=== PATIENT | female | born 1995 | race African-American/Black ===

== ENCOUNTER 2022-01-25 09:55 | Outpatient (REF) | payer BC, SELFPAY ==
[2022-01-26 08:59] LABS: CT PCR NOT DETECTED (Not Detect.); NG PCR NOT DETECTED (Not Detect.)
[2022-01-26 09:22] LABS: BV Int Neg Control Negative (Negative); BV Int Pos Control Positive (Positive)
== END 2022-01-25 09:56 | disposition home or self-care (01) ==
LOC: HO.LAB 09:55
PROVIDERS: Visit Provider Advanced Practice Midwife
DX: Z01.411 Encounter for gynecological examination (general) (routine) with abnormal findings (principal); N93.9 Abnormal uterine and vaginal bleeding, unspecified; E66.01 Morbid (severe) obesity due to excess calories; Z20.2 Contact with and (suspected) exposure to infections with a predominantly sexual mode of transmission
CPT/HCPCS: 87480; 87491; 87510; 87591; 87660; 88142

== ENCOUNTER 2022-02-16 11:51 | Outpatient (REF) | payer BC, SELFPAY ==
--- NOTE | ~2022-02-16 | US_ITS ---
EXAMINATION: US PELVIS CLINICAL INFORMATION: Abnormal uterine and vaginal bleeding COMPARISON: None TECHNIQUE: Ultrasound of the pelvis is performed using both transabdominal and transvaginal transducers along with Doppler. Transvaginal imaging is performed due to inadequate visualization transabdominally. FINDINGS: The uterus is anteverted and measures 7.9 x 3.8 x 5.3 cm in dimension. No focal uterine lesion is seen. Endometrial thickness is normal measuring 1.1 cm. The ovaries are normal in size. Right ovary measures 2.9 x 2.6 x 2.8 cm. The left ovary measures 4.3 x 2 x 2.4 cm. There are multiple small bilateral peripheral cysts or follicles seen in both ovaries. There is no fluid in the pelvis. US/US pelvic and transvaginal IMPRESSION: Slight polycystic appearance of the ovaries. The ovaries are normal in size. Otherwise unremarkable exam.
[2022-02-16 13:10] LABS: Hematocrit 36.8 % (37.0-47.0); Hemoglobin 11.4 g/dl (12.0-16.0); Mean Corpuscular Hemoglobin 24.8 pg (27.0-33.0); Mean Corpuscular Volume 80.2 fL (80.0-98.0); Mean Platelet Volume 11.1 fL (9.4-12.3); Platelet Count 422 X10*3/uL (160-400); Red Blood Count 4.59 X10*6/uL (4.20-5.50); Red Cell Distribution Width 13.8 % (11.0-16.0); White Blood Count 12.7 X10*3/uL (4.8-10.8)
[2022-02-16 13:30] LABS: Estimated Average Glucose 82 mg/dL; Hemoglobin A1c % 4.5 %
[2022-02-16 13:50] LABS: Alanine Aminotransferase 43 U/L (0-31); Albumin Level 3.9 g/dL (3.5-5.0); Alkaline Phosphatase 71 U/L (39-117); Anion Gap 11 (12-20); Aspartate Amino Transferase 23 U/L (5-31); Bilirubin Total 0.5 mg/dL (0.0-1.0); Blood Urea Nitrogen 9 mg/dL (9-16); Calcium 9.1 mg/dL (8.4-10.2); Carbon Dioxide 25 mmol/L (22-29); Chloride 105 mmol/L (96-108); Estimated Glomerular Filt Rate > 60; Glucose Fasting 82 mg/dL (60-99); Potassium 3.9 mmol/L (3.3-5.1); Sodium 137 mmol/L (135-145); Total Protein 7.3 g/dL (6.5-8.0)
[2022-02-16 13:54] LABS: TSH reflex Free T4 0.98 uIU/mL (0.32-4.0)
[2022-02-18 02:21] LABS: DHEA Sulfate 249 mcg/dL (14-349); Follicle Stimulating Hormone 7.1 mIU/mL; Lutenizing Hormone 10.6 mIU/mL; Prolactin 5.8 ng/mL
[2022-02-24 11:36] LABS: Testosterone, Free 5.4 pg/mL (0.1-6.4); Testosterone, Total 44 ng/dL (2-45)
== END 2022-02-16 11:52 | disposition home or self-care (01) ==
LOC: HO.US 11:51
PROVIDERS: PCP Internal Medicine; Visit Provider Advanced Practice Midwife
DX: N93.9 Abnormal uterine and vaginal bleeding, unspecified (principal); E66.01 Morbid (severe) obesity due to excess calories
CPT/HCPCS: 36415; 76830; 76856; 80053; 82627; 83001; 83002; 83036; 84146; 84402; 84403; 84443; 85027

== ENCOUNTER → 2022-03-03 09:45 | Outpatient (BNVA) | payer BC, SELFPAY | PROVIDERS: Visit Provider Advanced Practice Midwife | DX: Z13.89 Encounter for screening for other disorder (principal) ==

== ENCOUNTER 2023-09-29 10:00 | Outpatient (AMB) | payer BC, SELFPAY ==
--- NOTE | 2023-09-29 10:14 | A.OFFVIS_ITS ---
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 She is not having any paper cup machine tender concerns she told the MA she did not remember when her period was but in reality she knows that she had it before her birthday which was [birth year] she thinks it was the last week of July and that is when she took her last pill pack she ran out of pills for August so she is not sure when she is going to get her next.. She does want a refill on the pills she does get migraine headaches and she is switching to a new peer primary care provider at [facility] from [place] but she thinks if anything her migraines got better when she was on the control pills she when she was on the pills up until this past month she was getting a period every month at the end of the pill pack as it was scheduled. She is sexually active with her girlfriend and not worried about any STDs but does except testing her last Pap smear was normal. 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 Sleep is hard and she also brings her niece to school. She had lost 40 lb and then she gained most of it back she has not gotten to her heaviest but she started yesterday getting back to the gym and is starting with new resolution to try to get back to healthier life pattern she is thinking about planning meals because she thinks she eats too many sandwiches because they are easy. She is a pescatarian and is exploring with different kinds of fish as protein and she does eat alternative meat substitute. PFSH Surgical History Hx of tonsillectomy Family History Mother HTN (hypertension) Social History Alcohol intake: current Alcohol intake frequency: holidays/special occasions only Patient Tobacco Use Status: Never used Tobacco Gender identity: Female Female Reproductive History Menstrual Age of Menarche: 14 Duration of menses: 6-7 days control method: pills Total pregnancies: 0 Date of last pap smear: 01/26/22 (negative) Physical Exam Vital Signs: Last Vital Signs BP 124/80 09/29/23 10:15 BMI result Body Mass Index 48.9 Const General: healthy appearing, comfortable, no acute distress, well developed and alert Nutritional Appearance: average body habitus and obese Orientation/consciousness: patient oriented x3 Limitations: no limitations HEENT Head: Yes normocephalic Neck Neck: Yes normal visual inspection Thyroid: Thyroid normal Chest Chest palpation & inspection: normal inspection of the chest Breast/axilla inspection: normal inspection of the breasts and normal inspection of the axillae Breast/axilla palpation: normal palpation of the breasts and normal palpation of the axillae Resp Effort & Inspection: normal respiratory effort GI Inspection: Yes normal to inspection, No Abdominal wall edema and No distended Palpation (GI): Soft to palpation and nontender Other: Change Analyst exam limited by adipose tissue vagina pink clear moist cervix nulliparous pink clear moist mobile nontender unable to fully palpate dimensions of uterus a nd adnexa but nontender not enlarged and mobile. General: Yes bladder normal to palpation External Female Exam: normal external appearance and normal appearance of the urethra Speculum Exam - Vagina: normal appearance of the vagina, normal palpation and normal vaginal discharge Speculum Exam - Cervix: normal appearance of the cervix, normal palpation and nontender Bimanual exam- vagina & uterus: normal bimanual exam, normal palpation, bladder normal to palpation, consistency normal, normal palpation, uterine mobility normal, No Cervical tenderness present, non-tender and no cervical motion tenderness Bimanual Exam- Adnexa, other: normal adnexae, no masses, normal and No adnexal tenderness Neuro General: patient oriented x3 Assessment & Plan Assessment & Plan (1) Counseling for control, oral contraceptives: Code(s): Z30.09 - Encounter for other general counseling and advice on contraception (2) PCOS (polycystic ovarian syndrome): Code(s): E28.2 - Polycystic ovarian syndrome (3) Cervical cancer screening: Comment: 01/25/2022 Pap equals negative. Code(s): Z12.4 - Encounter for screening for malignant neoplasm of cervix (4) Potential exposure to STD: Code(s): Z20.2 - Contact with and (suspected) exposure to infections with a predominantly sexual mode of transmission (5) Well woman exam with routine gynecological exam: Code(s): Z01.419 - Encounter for gynecological examination (general) (routine) without abnormal findings (6) Obesity, morbid, BMI 50 or higher: Code(s): E66.01 - Morbid (severe) obesity due to excess calories Plan -----Discussed in this visit the following: healthy balanced diet, regular and consistent exercise, getting recommended health screens, doing the best she can for her particular health concerns, kegel exercises, pap smear screening and followup recommendations, mammography screening and SBE, normal changes in cycles in her life stage--- . Reviewed her use of the control pills she actually does have a fairly good idea when her last period was it was at the end of the last pill pack it at the end of July and it is just that she did not remember the date. She wants to continue on pills she just ran out this last month. I will refill her pills for her. I told her if she ever runs out again orders in danger running out please call. Since her headaches actually improved on control pill that is not a contraindication I urged her to discuss her weight with her new primary care providers and especially if she ends up having prediabetes or anything else then she may want to discuss other ways to help her lose the weight. We discussed meal prep and exercise and trying to figure out timing it is very challenging when somebody works plant operator/shift supervisor. Sleep is important too. Reviewed use of control pills and to call if she ever had negative side effects or elevated high blood pressure. Orders: Orders Bacterial Vaginosis Panel Today Z20.2 - Contact with and (suspected) exposure to infections with a predominantly sexual mode of transmission CT NG by PCR Today Z20.2 - Contact with and (suspected) exposure to infections with a predominantly sexual mode of transmission Medications: Refilled desog-e.estradiol/e.estradiol 0.15-0.02 mgx21 /0.01 mg x 5 1 tab PO DAILY 84 tabs 4RF Coding Level of Care Code Est Pt Prev Care 18-39y(15957) Diagnoses Counseling for control, oral contraceptives Z30.09 PCOS (polycystic ovarian syndrome) E28.2 Cervical cancer screening Z12.4 Potential exposure to STD Z20.2 Well woman exam with routine gynecological exam Z01.419 Obesity, morbid, BMI 50 or higher E66.01
[2023-09-29 10:15] VITALS: BP 124/80; BMI 48.9
== END 2023-09-29 10:58 | disposition home or self-care (01) ==
LOC: HO.HWS 10:00
PROVIDERS: PCP Internal Medicine; Visit Provider Advanced Practice Midwife
DX: Z01.419 Encounter for gynecological examination (general) (routine) without abnormal findings (principal); Z30.09 Encounter for other general counseling and advice on contraception; E28.2 Polycystic ovarian syndrome; Z12.4 Encounter for screening for malignant neoplasm of cervix; Z20.2 Contact with and (suspected) exposure to infections with a predominantly sexual mode of transmission; E66.01 Morbid (severe) obesity due to excess calories
CPT/HCPCS: 99395

== ENCOUNTER 2023-09-29 10:00 | Outpatient (REF) | payer BC, SELFPAY ==
[2023-09-29 18:39] LABS: CT PCR NOT DETECTED (Not Detect.); NG PCR NOT DETECTED (Not Detect.)
[2023-10-01 14:31] LABS: BV Int Neg Control Negative (Negative); BV Int Pos Control Positive (Positive)
== END 2023-09-29 10:01 | disposition home or self-care (01) ==
LOC: HO.LNP 10:00
PROVIDERS: PCP Internal Medicine; Visit Provider Advanced Practice Midwife
DX: Z20.2 Contact with and (suspected) exposure to infections with a predominantly sexual mode of transmission (principal); E28.2 Polycystic ovarian syndrome; E66.01 Morbid (severe) obesity due to excess calories
CPT/HCPCS: 0353U; 87480; 87510; 87660

== ENCOUNTER 2024-10-10 08:38 | Outpatient (REF) | payer BC, SELFPAY ==
[2024-10-10 08:56] LABS: MANUAL DIFF FLAG NO
[2024-10-10 09:10] LABS: White Blood Count 12.2 X10*3/uL (4.8-10.8)
[2024-10-10 09:11] LABS: Basophils Absolute Auto 0.1 X10*3/uL (0.0-0.2); Basophils Percent Auto 0.5 % (0-2); Eosinophils Absolute Auto 0.2 X10*3/uL (0.0-0.4); Eosinophils Percent Auto 1.7 % (0-4); Hematocrit 37.1 % (37.0-47.0); Hemoglobin 11.6 g/dl (12.0-16.0); Imm Gran Abs Auto 0.05 X10*3/uL (0.00-0.03); Imm Gran Pct Auto 0.4 % (0.0-0.4); Lymphocytes Percent Auto 24.6 % (20-40); Mean Corpuscular HGB Conc 31.3 g/dl (31.0-35.0); Mean Corpuscular Hemoglobin 24.7 pg (27.0-33.0); Mean Corpuscular Volume 78.9 fL (80.0-98.0); Mean Platelet Volume 10.3 fL (9.4-12.3); Monocytes Absolute Auto 0.6 X10*3/uL (0.1-1.2); Monocytes Percent Auto 4.8 % (2-11); Neutrophils Absolute Auto 8.3 x10*3/uL (2.0-8.3); Platelet Count 381 X10*3/uL (160-400); Red Cell Distribution Width 12.9 % (11.0-16.0)
[2024-10-10 09:43] LABS: Alanine Aminotransferase 20 U/L (0-31); Albumin Level 3.9 g/dL (3.5-5.0); Alkaline Phosphatase 74 U/L (39-117); Anion Gap 12 (12-20); Aspartate Amino Transferase 19 U/L (5-31); Bilirubin Total 0.5 mg/dL (0.0-1.0); Blood Urea Nitrogen 12 mg/dL (9-16); Calcium 9.6 mg/dL (8.4-10.2); Carbon Dioxide 26 mmol/L (22-29); Chloride 106 mmol/L (96-108); Cholesterol 196 mg/dL (<200); Estimated Glomerular Filt Rate > 60; Glucose Random 87 mg/dL (60-115); HDL Cholesterol 41 mg/dL (>40); LDL Cholesterol Calculated 130 mg/dL (<100); Potassium 3.9 mmol/L (3.3-5.1); Sodium 140 mmol/L (135-145); Total Protein 7.5 g/dL (6.5-8.0); Triglycerides 129 mg/dL (<150)
[2024-10-10 09:53] LABS: Syphilis Screen Nonreactive (Nonreactive)
[2024-10-10 10:04] LABS: HBS Num1 0.81 mIU/mL (0-7.99); HBc Num1 0.12 S/CO (0.00-0.79); HBsAGNum1 0.42 S/CO (0.00-0.99); HIV AB/AG Nonreactive (Nonreactive); HIV Num 1 0.06 S/CO (0.00-0.99); Hepatitis A Antibody IgM 0.25 Index (0-0.79); Hepatitis B Core Antibody Nonreactive (Nonreactive); Hepatitis B Surface Antigen Negative (Negative); ~HepC Num1 0.26 S/CO (0.00-0.79); ~Hepatitis A Antibody IgM Nonreactive (Nonreactive); ~Hepatitis B Surface Antibody NONREACTIVE (Nonreactive); ~Hepatitis C Antibody Nonreactive (Nonreactive)
[2024-10-10 10:05] LABS: Ferritin 38 ng/mL (10-122); TSH reflex Free T4 1.61 uIU/mL (0.32-4.0)
[2024-10-10 11:03] LABS: Reflex LDLD? No
== END 2024-10-10 08:39 | disposition home or self-care (01) ==
LOC: HO.LAB 08:38
PROVIDERS: PCP Internal Medicine; Visit Provider Internal Medicine
DX: G43.E09 Chronic migraine with aura, not intractable, without status migrainosus (principal); D50.0 Iron deficiency anemia secondary to blood loss (chronic); Z11.3 Encounter for screening for infections with a predominantly sexual mode of transmission; E78.00 Pure hypercholesterolemia, unspecified; Z11.59 Encounter for screening for other viral diseases
CPT/HCPCS: 36415; 80053; 80061; 82306; 82728; 84443; 85025; 86704; 86706; 86709; 86780; 86803; 87340; 87389

== ENCOUNTER 2024-11-07 10:43 | Outpatient (REF) | payer BC, SELFPAY ==
[2024-11-08 02:22] LABS: CT PCR NOT DETECTED (Not Detect.); NG PCR NOT DETECTED (Not Detect.)
[2024-11-08 08:50] LABS: Bacterial Vaginosis PCR NEGATIVE (Negative); Candida Group PCR NOT DETECTED (Not Detect); Candida glab krusei PCR NOT DETECTED (Not Detect); Trichomonas vaginalis PCR NOT DETECTED (Not Detect)
== END 2024-11-07 10:44 | disposition home or self-care (01) ==
LOC: HO.LAB 10:43
PROVIDERS: PCP Internal Medicine; Visit Provider Advanced Practice Midwife
DX: N89.8 Other specified noninflammatory disorders of vagina (principal); Z20.2 Contact with and (suspected) exposure to infections with a predominantly sexual mode of transmission
CPT/HCPCS: 81515; 87491; 87591

== ENCOUNTER 2024-11-07 10:43 | Outpatient (AMB) | payer BC, SELFPAY ==
--- NOTE | 2024-11-07 10:57 | MHC.OFFVIS ---
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 Family Court Justice Required: No Family Court Justice Services: Family Court Justice Present Information Interpreted: clinical only Sql Server Developer: Sql Server Developer Present Allergies No Known Allergies Allergy (Verified 11/07/24 10:58) Medication List - Last Reconciled 11/07/24 by Denise Prasad CNM desog-e.estradiol/e.estradiol 0.15-0.02 mgx21 /0.01 mg x 5 1 tab PO DAILY sumatriptan succinate 25 mg PO Q2-4H PRN Is last menstrual period known: Yes Last menstrual period: 11/02/24 HPI HPI IMPRESSION PRINTER annual exam: Details: 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 She likes being on the pills because they help her have regular periods her migraines are not that bad she is seeing a neurologist and she did try medication but she did not like the side effects. In general they are better being on the control pills than not. She is working on weight loss but she has plateaued she is now on day shift she is now single in broke up with her girlfriend some time ago she is open to STI screening though not particularly worried. She would be interested in speaking with a medical office receptionist she is working on the weight loss herself but she is a vegetarian but she also was a Pescatarian but in truth she only eats shrimp she does not like the other kinds of fish. Discussed ways of getting protein in her diet and avoidance of carbs and the importance of vegetables. She saw her primary care provider was new to her only wants and will having an appointment coming up December 26 to review her labs which were all fasting in the fasting labs included a glucose that was 87 LDL was elevated. Vitamin-D was low she will review these formally with her primary care provider.. Reviewed all of the above at the visit she wants to continue on the pills I am ordering for her testing for STIs through blood work that she can get done at her convenience. I am also placing a medical office receptionist referral for her and discussed finding other inputs about diet and suggested staying away from things like breads that is simply advertised as low carb as they are not necessarily the best either. PFS Medical History (Updated 11/07/24 @ 12:03 by Denise Prasad CNM) Migraines Surgical History Hx of tonsillectomy Family History Mother HTN (hypertension) Social History Alcohol intake: current Alcohol intake frequency: holidays/special occasions only Patient Tobacco Use Status: Never used Tobacco Gender identity: Female Female Reproductive History Menstrual Age of Menarche: 14 Duration of menses: 3-5 days Date of last menstrual period: 11/02/24 control method: pills Total pregnancies: 0 Full term: 0 Date of last pap smear: 01/26/22 (negative) History of abnormal pap smear: No Physical Exam Vital Signs: Last Vital Signs BP 118/70 11/07/24 10:58 BMI result Body Mass Index 47.4 Const General: healthy appearing, comfortable, no acute distress, well developed and alert Nutritional Appearance: average body habitus Orientation/consciousness: patient oriented x3 Limitations: no limitations HEENT Head: Yes normocephalic Neck Neck: Yes normal visual inspection Chest Chest palpation & inspection: normal inspection of the chest Breast/axilla inspection: normal inspection of the breasts and normal inspection of the axillae Breast/axilla palpation: normal palpation of the breasts and normal palpation of the axillae Resp Effort & Inspection: normal respiratory effort GI Inspection: Yes normal to inspection, No Abdominal wall edema and No distended Palpation (GI): Soft to palpation and nontender Other: External exam within normal limits some evidence of previous folliculitis episodes none inflamed currently. Vagina pink and moist nulliparous cervix pink smooth very healthy appearing scant clear mucus. Pap smear taken cervix slightly friable with Pap testing for STIs also done cervix long close thick mobile nontender uterus difficult to feel secondary to adipose but does not feel enlarged adnexa not enlarged nontender good tone with Kegel. General: Yes bladder normal to palpation External Female Exam: normal external appearance and normal appearance of the urethra Speculum Exam - Vagina: normal appearance of the vagina, normal palpation and normal vaginal discharge Speculum Exam - Cervix: normal appearance of the cervix, normal palpation and nontender Bimanual exam- vagina & uterus: normal bimanual exam, normal palpation, uterine size normal, bladder normal to palpation, consistency normal, normal palpation, uterine mobility normal, uterine shape normal, No Cervical tenderness present, non-tender and no cervical motion tenderness Bimanual Exam- Adnexa, other: normal adnexae, no masses, normal and No adnexal tenderness Neuro General: patient oriented x3 Assessment & Plan Assessment & Plan (1) Abnormal uterine bleeding (AUB): Comment: managed now w ocps Code(s): N93.9 - Abnormal uterine and vaginal bleeding, unspecified Category: Medical (2) Obesity, morbid, BMI 50 or higher: Comment: is working on wt loss, vegetarian, +eats shrimp, interested in nutritional guidance Code(s): E66.01 - Morbid (severe) obesity due to excess calories Category: Medical (3) Well woman exam with routine gynecological exam: Code(s): Z01.419 - Encounter for gynecological examination (general) (routine) without abnormal findings Category: Medical (4) Potential exposure to STD: Code(s): Z20.2 - Contact with and (suspected) exposure to infections with a predominantly sexual mode of transmission Category: Medical (5) Cervical cancer screening: Comment: 01/25/2022 Pap equals negative. 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 She likes being on the pills because they help her have regular periods her migraines are not that bad she is seeing a neurologist and she did try medication but she did not like the side effects. In general they are better being on the control pills than not. She is working on weight loss but she has plateaued she is now on day shift she is now single in broke up with her girlfriend some time ago she is open to STI screening though not particularly worried. She would be interested in speaking with a medical office receptionist she is working on the weight loss herself but she is a vegetarian but she also was a Pescatarian but in truth she only eats shrimp she does not like the other kinds of fish. Discussed ways of getting protein in her diet and avoidance of carbs and the importance of vegetables. She saw her primary care provider was new to her only wants and will having an appointment coming up December 26 to review her labs which were all fasting in the fasting labs included a glucose that was 87 LDL was elevated. Vitamin-D was low she will review these formally with her primary care provider.. Reviewed all of the above at the visit she wants to continue on the pills I am ordering for her testing for STIs through blood work that she can get done at her convenience. I am also placing a medical office receptionist referral for her and discussed finding other inputs about diet and suggested staying away from things like breads that is simply advertised as low carb as they are not necessarily the best either. -----Discussed in this visit the following: healthy balanced diet, regular and consistent exercise, getting recommended health screens, doing the best she can for her particular health concerns, kegel exercises, pap smear screening and followup recommendations, mammography screening and SBE, normal changes in cycles in her life stage--- . Reviewed again all of the issues with PCOS which we reviewed at previous visits. Orders: Referrals Intensive Care Medicine Specialist Nutrition Referral E28.2 - Polycystic ovarian syndrome, E66.01 - Morbid (severe) obesity due to excess calories, N93.9 - Abnormal uterine and vaginal bleeding, unspecified, Z01.419 - Encounter for gynecological examination (general) (routine) without abnormal findings, Z12.4 - Encounter for screening for malignant neoplasm of cervix, Z20.2 - Contact with and (suspected) exposure to infections with a predominantly sexual mode of transmission, Z30.09 - Encounter for other general counseling and advice on contraception Medications: Refilled desog-e.estradiol/e.estradiol 0.15-0.02 mgx21 /0.01 mg x 5 1 tab PO DAILY 84 tabs 4RF Coding Level of Care Code Est Pt Prev Care 18-39y(26764) Diagnoses Abnormal uterine bleeding (AUB) N93.9 Obesity, morbid, BMI 50 or higher E66.01 Well woman exam with routine gynecological exam Z01.419 Potential exposure to STD Z20.2 Cervical cancer screening Z12.4 PCOS (polycystic ovarian syndrome) E28.2 Counseling for control, oral contraceptives Z30.09
[2024-11-07 10:58] VITALS: BP 118/70; BMI 47.4
== END 2024-11-07 12:03 | disposition home or self-care (01) ==
PROVIDERS: PCP Internal Medicine; Visit Provider Advanced Practice Midwife
DX: Z01.419 Encounter for gynecological examination (general) (routine) without abnormal findings (principal); N93.9 Abnormal uterine and vaginal bleeding, unspecified; E66.01 Morbid (severe) obesity due to excess calories; Z20.2 Contact with and (suspected) exposure to infections with a predominantly sexual mode of transmission; E28.2 Polycystic ovarian syndrome; Z30.09 Encounter for other general counseling and advice on contraception
CPT/HCPCS: 99395; 99459

== ENCOUNTER 2024-11-07 15:38 | Outpatient (REF) | payer BC, SELFPAY | END 2024-11-07 15:39 | disposition home or self-care (01) | LOC: HO.LNP 15:38 | PROVIDERS: Visit Provider Advanced Practice Midwife | DX: Z00.00 Encounter for general adult medical examination without abnormal findings (principal); Z12.4 Encounter for screening for malignant neoplasm of cervix; N89.8 Other specified noninflammatory disorders of vagina; Z20.2 Contact with and (suspected) exposure to infections with a predominantly sexual mode of transmission | CPT/HCPCS: 88175 ==

== ENCOUNTER 2025-05-05 09:40 | Outpatient (REF) | payer BC, SELFPAY ==
--- OUTSIDE RECORDS SUMMARY | 2025-05-05 09:00 | XMS_ITS | Encounter Summary ---
Author Organization [facility] Address [address] [place] [address] Care Team Providers Care Script Coordinator Name Role Phone Dayanara Oviedo MD Primary Care Provider + Reason for Visit * Reason Comments Vaginal Discharge Encounter Details Date Type Department Care Team ([facility] st Contact Info) Description 05/05/2025 9:00 AM EDT Office Visit [facility] [address] [address] Elevated blood pressure reading (Primary Dx); Vaginal discharge; Screening for venereal disease Social History Tobacco Use Types Packs/Day Years Used Date Smoking Tobacco: Never Smokeless Tobacco: Never Alcohol Use Standard Drinks/Week Comments Never 0 (1 standard drink = 0.6 oz pur e alcohol) Depression Answer Date Recorded Patient Health Questionnaire-9 Score 13 08/14/2024 Patient Health Questionnaire-9 Score 13 08/14/2024 Last PHQ-9: Questionnaire Data Not on file 1 Housing Stability Answer Date Recorded What is your housing situation today? I have allyssa silverman 08/14/[address] you li ve. Do you have problems with any of the following? None of the above 08/14/2024 Food Insecurity Answer Date Recorded Within the past 12 months, y ou worried that your food would run out before you got money to buy more: Never True 08/14/2024 Within the past 12 months,th e food you bought just didn't last and you didn't have enough money to get more: Never True Transportation Answer Date Recorded In the past 12 months, has l ack of transportation kept you from medical appts, meetings, work or from getting things needed for daily living? No 08/14/2024 Utilities Answer Date Recorded In the past 12 months, has t he electric, gas, oil or water company threatened to shut off services in your home? No 08/14/2024 Depression Answer Date Recorded Patient Health Questionnaire-2 Score 4 08/14/2024 Internet Access Answer Date Recorded Internet Access Q1 No 08/14/2024 Internet Access Q2 I do not want or need it 07/30 Comments No Sex and Gender Information Value Date Recorded Sex Assigned at Female 02/02/2024 5:38 PM EDT Legal Sex Female 5:32 PM EDT Gender Identity Female 02/02/2024 5:38 PM EDT Sexual Orientation Pansexual 12/19/2024 8: 58 AM EST documented as of this encounter Last Filed Vital Signs Vital Sign Reading Time Taken Comments Blood Pressure 138/90 05/05/2025 9:32 AM EDT Pulse 90 05/05/2025 9:05 AM EDT Temperature 36.7 C (98.1 F) 05/05/2025 9:05 AM EDT Respiratory Rate 18 05/05/2025 9:05 AM EDT Oxygen Saturation 99% 05/05/2025 9:05 AM EDT Inhaled Oxygen Concentration - - Weight 128 kg (283 lb) 05/05/2025 9:05 AM EDT Height - - Body Mass Index 47.09 12/26/2024 9:12 AM EST documented in this encounter Plan of Treatment Upcoming Encounters Date Type Department Care Team (Late st Contact Info) Description 05/19/2025 10:30 AM EDT Office Visit [facility] [address] [place] [id number] Scheduled Orders Name Type Priority Associated Diagnoses Orde r Schedule Bacterial Vaginosis Microbiology Routine Vaginal discharge Ordered: 05/05/2025 Chlamydia/N. Gonorrhoeae RNA, TMA, Urogenitial Microbiology Routine Vaginal discharge Ordered: 05/05/2025 HIV-1/2 Antigen and Antibodies, Fourth Generation, with Reflexes Lab Routine Screening for venereal disease Expected: 05/05/2025 (Approximate), Expires: 05/05/2026 Syphilis Screen Lab Routine Screening for venereal disease Expected: 05/05/2025 (Approximate), Expires: 05/05/2026 documented as of this encounter Procedures Procedure Name Priority Date/Time Associated Diagnosis Comments POCT URINALYSIS DIPSTICK Routine 05/05/2025 9:20 AM EDT Vaginal discharge documented in this encounter Results * (ABNORMAL) POCT urinalysis dipstick manually resulted (05/05/2025 9:20 AM EDT) Color, UA Yellow Clarity, UA Clear Glucose, UA Negative Bilirubin, UA Negative Ketones, UA Negative Spec Grav, UA 1.015 Blood, UA Negative Negative, None Detected pH, UA 6.0 Protein, UA Negative Urobilinogen, UA 0.2 Leukocytes, UA Few 15(A) Negative, Rare, Trace Comment:Small Nitrite, UA Negative Negative, None Detected Appearance, UA OK Urine 05/05/2025 9:20 AM EDT Carmen Davies SEPTIC TANK SERVICE TECHNICIAN POINT OF CARE TEST ENTER/EDIT O RDERABLES Final Result documented in this encounter Visit Diagnoses Diagnosis Elevated blood pressure reading- Primary Elevated blood pressure reading without diagnosis of hypertension Vaginal discharge Leukorrhea, not specified as infective Screening for venereal disease Screening examination for venereal disease documented in this encounter Additional Health Concerns Assessment Noted Time PHQ-9 Depression Total Score: 13 024 9:29 AM EDT documented as of this encounter Care Teams Script Coordinator Relationship Specialty Start Date End Date Dayanara Oviedo MD [address] [place] [address] PCP - General Internal Medicine 08/14/24 documented as of this encounter
[2025-05-06 02:05] LABS: CT PCR NOT DETECTED (Not Detect.); NG PCR NOT DETECTED (Not Detect.)
[2025-05-06 08:03] LABS: HIV Num 1 0.05 S/CO (0.00-0.99)
[2025-05-06 08:20] LABS: Syphilis Screen Nonreactive (Nonreactive)
[2025-05-06 10:54] LABS: Bacterial Vaginosis PCR NEGATIVE (Negative); Candida Group PCR DETECTED (Not Detect); Candida glab krusei PCR NOT DETECTED (Not Detect); Trichomonas vaginalis PCR DETECTED (Not Detect)
== END 2025-05-05 09:41 | disposition home or self-care (01) ==
LOC: HO.HHCL 09:40
PROVIDERS: PCP Internal Medicine; Visit Provider Nurse Practitioner
DX: N89.8 Other specified noninflammatory disorders of vagina (principal); Z11.3 Encounter for screening for infections with a predominantly sexual mode of transmission
CPT/HCPCS: 36415; 81515; 86780; 87389; 87491; 87591